=== PATIENT | female | born 2000 | race Hispanic/Latino ===

== ENCOUNTER 2024-12-19 20:58 | Emergency (ER) | payer SELFPAY ==
[~2024-12-19] VITALS: Ht 152.4 cm; Wt 72.6 kg
[2024-12-19 21:07] VITALS: TEMP 99
[2024-12-19 22:23] LABS: BASOPHILS % 0.3 % (0.0-1.0); EOSINOPHILS % 0.8 % (0.0-6.0); LYMPHOCYTES % 34.2 % (18.0-39.1); MONOCYTES % 5.6 % (4.4-11.3); NEUTROPHILS % 58.8 % (38.7-80.0); RED CELL DISTRIBUTION WIDTH 13.4 % (11.7-14.4)
[2024-12-19 22:36] LABS: EST GLOMERULAR FILTRATION RATE 114.0 ML/MIN (>=60)
[2024-12-20] VITALS: PULSE 90; RESP 20
[2024-12-20 00:12] VITALS: BP 95/83; PULSE 90; RESP 20; O2SAT 98
== END 2024-12-20 00:08 | disposition home or self-care (01) ==
LOC: ER 22:18
DX: M25.512 Pain in left shoulder (principal); M25.511 Pain in right shoulder; R07.89 Other chest pain; H52.531 Spasm of accommodation, right eye
CPT/HCPCS: 36415; 71045; 80053; 84484; 85025; 93005; 99284